=== PATIENT | female | born 1980 | race African-American/Black ===

== ENCOUNTER 2019-01-02 17:43 | Emergency (ER) | payer MEDICAID, OTHER ==
[~2019-01-02] VITALS: Ht 172.7 cm; Wt 91.0 kg
[2019-01-02] MEDS ORDERED: IBUPROFEN 600MG TABLET PO STA (18:53)
[2019-01-02] MEDS ORDERED: LORAZEPAM 0.5MG TABLET PO ONE (19:00)
[2019-01-02 19:35] LABS: MEAN CORPUSCULAR HEMOGLOBIN 27.4 pg (28.0-32.0); MEAN CORPUSCULAR VOLUME 84.4 fL (81.0-99.0); MEAN PLATELET VOLUME 10.4 fl (7.4-10.4); PLATELET 195 x1000/uL (130-400); RED BLOOD CELL COUNT 4.39 mill/uL (4.2-5.4); RED CELL DISTRIBUTION WIDTH 16.1 % (11.6-14.6)
[2019-01-02 19:42] LABS: CHLORIDE 109 mEq/L (98-107)
[2019-01-02 20:01] LABS: PLATELET ESTIMATE NORMAL
[2019-01-02 21:39] VITALS: BP 123/82
== END 2019-01-02 21:40 | disposition home or self-care (01) ==
LOC: ER 17:43
DX: R07.89 Other chest pain (principal); R94.31 Abnormal electrocardiogram [ECG] [EKG]
CPT/HCPCS: 36415; 71045; 81025; 93005; 99284

== ENCOUNTER 2019-01-07 18:29 | Emergency (ER) | payer OTHER ==
[~2019-01-07] VITALS: Ht 170.2 cm; Wt 92.0 kg
[2019-01-07 21:00] VITALS: BP 138/80
== END 2019-01-07 22:20 | disposition home or self-care (01) ==
LOC: ER 18:29
DX: S89.91XA Unspecified injury of right lower leg, initial encounter (principal); Z88.0 Allergy status to penicillin; W01.0XXA Fall on same level from slipping, tripping and stumbling without subsequent striking against object, initial encounter; Y93.89 Activity, other specified; Y92.89 Other specified places as the place of occurrence of the external cause; Y99.8 Other external cause status
CPT/HCPCS: 73562; 81025; 99283

== ENCOUNTER 2019-03-03 19:37 | Emergency (ER) | payer OTHER ==
[~2019-03-03] VITALS: Ht 170.2 cm; Wt 91.0 kg
[2019-03-03 20:01] VITALS: BP 178/87
== END 2019-03-03 22:30 | disposition left against medical advice (07) ==
LOC: ER 19:37
DX: Z53.21 Procedure and treatment not carried out due to patient leaving prior to being seen by health care provider (principal)

== ENCOUNTER 2019-06-03 17:30 | Emergency (ER) | payer OTHER ==
[~2019-06-03] VITALS: Ht 167.6 cm; Wt 119.0 kg
[2019-06-03 17:54] VITALS: BP 167/119
== END 2019-06-03 21:44 | disposition left against medical advice (07) ==
LOC: ER 17:30
DX: M79.10 Myalgia, unspecified site (principal); Z53.21 Procedure and treatment not carried out due to patient leaving prior to being seen by health care provider
CPT/HCPCS: 82962

== ENCOUNTER 2019-12-10 08:32 | Emergency (ER) | payer OTHER ==
[~2019-12-10] VITALS: Ht 175.3 cm; Wt 91.0 kg
[2019-12-10 09:23] LABS: CLARITY URINE TURBID (CLEAR); COLOR URINE DARK YELLOW (YELLOW); KETONES URINE TRACE (NEGATIVE); LEUKOCYTE ESTERASE URINE 1+ (NEGATIVE); NITRITE URINE NEGATIVE (NEGATIVE); OCCULT BLOOD URINE 1+ (NEGATIVE); PROTEIN URINE 3+ (NEGATIVE); SPECIFIC GRAVITY URINE 1.038 (1.005-1.030)
[2019-12-10] MEDS ORDERED: KETOROLAC 30MG/ML VIAL IM ONE (09:45)
[2019-12-10 10:14] VITALS: BP 157/87
== END 2019-12-10 10:17 | disposition home or self-care (01) ==
LOC: ER 08:32
DX: A59.03 Trichomonal cystitis and urethritis (principal)
CPT/HCPCS: 81003; 81025; 87086; 96372; 99283; J1885